=== PATIENT | male | born 1955 | race Caucasian/White ===

== ENCOUNTER 2017-09-24 10:23 | Emergency (ER) | payer OTHER ==
--- NOTE | 2017-09-24 12:27 | RAD ---
RIGHT LOWER LEG TWO VIEWS: History: Fall. Right leg injury. FINDINGS: Tibia and fibula are intact. No acute fracture or dislocation. IMPRESSION: No acute osseous abnormalities are demonstrated. POS: [facility]
--- NOTE | 2017-09-24 12:28 | RAD ---
LUMBAR SPINE 3 VIEWS: History Fall. Back injury. FINDINGS: There are 5 lumbar-type vertebrae. Pedicles are intact. Vertebral body height and alignment are geneva ntained. Prominent osteophytosis throughout the lower facets. IMPRESSION: Lumbar spondylosis. No acute osseous abnormalities are demonstrated. POS: [facility]
--- NOTE | 2017-09-24 12:29 | RAD ---
RIGHT WRIST 3 VIEWS: HISTORY: Fall. Right wrist injury. FINDINGS: Scaphoid waist is intact. Moderate osteophytosis is present throughout the wrist. Remodeling of the distal radius and ulna suggests the possibility of old healed injuries. No acute fracture or disloc ation are evident. IMPRESSION: Mild osteoarthritic changes and other chronic-type findings. No acute osseous abnormalities are demo nstrated. POS: [facility]
--- NOTE | 2017-09-24 12:29 | RAD ---
RIGHT FEMUR TWO VIEWS: History: Fall. Right leg injury. FINDINGS: No acute fracture, dislocation, or radiopaque foreign bodies are apparent. IMPRESSION: No acute osseous abnormalities are demonstrated. POS: [facility]
--- NOTE | 2017-09-24 12:30 | RAD ---
RIGHT FOREARM 2 VIEWS: HISTORY: Fall. Right arm injury. FINDINGS: Degenerative changes of the elbow and wrist are apparent. No acute fracture or dislocation. IMPRESSION: No acute osseous abnormalities are demonstrated. POS: [facility]
--- NOTE | 2017-09-24 12:30 | RAD ---
RIGHT ELBOW FOUR VIEWS: History: Fall. Right elbow injury. FINDINGS: Radiocapitellar alignment is maintained. Moderate osteophytosis throughout the elbow. No acute fractu re, dislocation, or fluid distention of the joint capsule. IMPRESSION: Osteoarthritis. No acute osseous abnormalities are demonstrated. POS: [facility]
--- NOTE | 2017-09-24 12:31 | RAD ---
RIGHT RIBS THREE VIEWS CHEST ONE VIEW: History: Fall. Chest injury. FINDINGS: No displaced rib fracture or pneumothorax are apparent. Cardiac silhouette is enlarged. No lobar cons olidation. Mediastinum is midline. IMPRESSION: 1. No displaced rib fracture or evidence of pneumothorax. 2. Cardiomegaly. POS: [facility]
== END 2017-09-24 11:46 | disposition home or self-care (01) ==
LOC: ERS 10:23
DX: S20.211A Contusion of right front wall of thorax, initial encounter (principal); S50.01XA Contusion of right elbow, initial encounter; S80.11XA Contusion of right lower leg, initial encounter; S70.11XA Contusion of right thigh, initial encounter; Z87.891 Personal history of nicotine dependence; Z79.899 Other long term (current) drug therapy; W17.89XA Other fall from one level to another, initial encounter; Y99.0 Civilian activity done for income or pay
CPT/HCPCS: 72100; 99283

== ENCOUNTER 2019-09-22 10:49 | Emergency (ER) | payer OTHER ==
[2019-09-22] MEDS ORDERED: Adacel (T-DAP) 0.5 ML SYRINGE ONE (11:04)
[2019-09-22] MEDS ORDERED: Lidocaine 1% (PF) 30 ML VIAL ONE (11:23)
[2019-09-22] MEDS ORDERED: Bacitracin 1 PK ONE (11:50)
--- NOTE | 2019-09-22 14:15 | RAD ---
RIGHT LONG FINGER RADIOGRAPH 2 VIEWS: INDICATION: History of laceration of the right long finger. FINDINGS: No radiopaque foreign body is grossly evident. There is IP osteoarthrosis of the right long finger. No definite displaced fracture is evident. IMPRESSION: No definite acute osseous abnormality. POS: [facility]
== END 2019-09-22 12:31 | disposition home or self-care (01) ==
LOC: ERS 10:49
DX: S61.212A Laceration without foreign body of right middle finger without damage to nail, initial encounter (principal); Z87.891 Personal history of nicotine dependence; Z79.82 Long term (current) use of aspirin; Z79.899 Other long term (current) drug therapy; W26.8XXA Contact with other sharp object(s), not elsewhere classified, initial encounter
CPT/HCPCS: 12001; 90471; 90715; J2001